=== PATIENT | male | born 1955 | race Caucasian/White ===

== ENCOUNTER 2022-08-24 20:03 | Emergency (ER) | payer MEDICARE, OTHER ==
[~2022-08-24 20:03] MED LIST: AMOXICILLIN500 MG PO; LORTAB 1010 MG PO
[2022-08-24 21:46] VITALS: BP 115/79
== END 2022-08-24 22:29 | disposition home or self-care (01) ==
LOC: ED 20:03
DX: S51.812D Laceration without foreign body of left forearm, subsequent encounter (principal); I10 Essential (primary) hypertension; X58.XXXD Exposure to other specified factors, subsequent encounter

== ENCOUNTER 2022-08-31 19:17 | Emergency (ER) | payer MEDICARE, OTHER ==
[2022-08-31] MEDS ORDERED: KEFLEX500 MG PO (20:23)
[2022-08-31 20:26] VITALS: BP 121/76
== END 2022-08-31 20:38 | disposition home or self-care (01) ==
LOC: ED 19:17
DX: S51.812D Laceration without foreign body of left forearm, subsequent encounter (principal); I10 Essential (primary) hypertension; X58.XXXD Exposure to other specified factors, subsequent encounter